=== PATIENT | female | born 1970 | race African-American/Black ===

== ENCOUNTER 2016-02-17 22:21 | Emergency (ER) | payer OTHER ==
--- NOTE | 2016-02-17 22:35 | PDOC ---
History of Present Illness - General Stated Complaint: TROUBLE BREATHING Time Seen by Provider: 02/17/16 22:25 History Source: Patient Exam Limitations: No Limitations - History of Present Illness Timing/Duration: reports: just prior to arrival Severity: reports: mild Possible Cause: Yes: no prior episodes Associated Symptoms: reports: denies symptoms Past History - Travel Traveled outside of the country in the last 30 days: No Close contact w/someone who was outside of country & ill: No - Past Medical History Allergies/Adverse Reactions: Allergies Allergy/AdvReac Type Severity Reaction Status Date / Time haloperidol [From Haldol] AdvReac Verified 02/17/16 22:39 haloperidol lactate AdvReac Verified 02/17/16 22:39 [From Haldol] Home Medications: Ambulatory Orders Albuterol Sulfate Inhaler - [Ventolin HFA Inhaler -] 2 inh PO Q4H #1 inh Ibuprofen [Motrin -] 600 mg PO TID #21 tablet 02/06/14 Divalproex *ER* [Depakote *ER* -] 250 mg PO BID 02/17/16 Asthma: Yes HTN: Yes (NO MEDS) - Immunization History Td Vaccination: No Immunization Up to Date: Yes - Psycho/Social/Smoking Cessation Hx Anxiety: No Suicidal Ideation: No Smoking Status: Yes Smoking History: Current every day smoker Number of Cigarettes Smoked Daily: 10 Hx Alcohol Use: Yes (occasion) Respiratory Specific PMHX - Complaint Specific PMHX Angina: No Bronchitis: No Pneumonia: No Review of Systems - Review of Systems Able to Perform ROS?: Yes Comments:: 02/17/16 22:31 CONSTITUTIONAL: Absent: fever, chills, diaphoresis, generalized weakness, malaise, loss of appetite HEENT: Absent: rhinorrhea, nasal congestion, throat pain, throat swelling, difficulty swallowing, mouth swelling, ear pain, eye pain, visual Changes CARDIOVASCULAR: Absent: chest pain, loss of consciousness, palpitations, irregular heart rate, peripheral edema RESPIRATORY: Absent: cough, shortness of breath, dyspnea with exertion, orthopnea, wheezing, stridor, hemoptysis GASTROINTESTINAL: Absent: abdominal pain, abdominal distension, nausea, vomiting, diarrhea, constipation, melena, hematochezia GENITOURINARY: Absent: dysuria, frequency, urgency, hesitancy, hematuria, flank pain, genital pain MUSCULOSKELETAL: Absent: myalgia, arthralgia, joint swelling SKIN: Absent: rash, itching, pallor HEMATOLOGIC/IMMUNOLOGIC: Absent: easy bleeding, easy bruising, lymphadenopathy, frequent infections ENDOCRINE: Absent: unexplained weight gain, unexplained weight loss, heat intolerance, cold intolerance NEUROLOGIC: Absent: headache, focal weakness or paresthesias, dizziness, unsteady gait, seizure, mental status changes, bladder or bowel incontinence PSYCHIATRIC: Absent: anxiety, depression, suicidal or homicidal ideation, hallucinations. Is the patient limited Maori proficient: No *Physical Exam - Physical Exam Comments: 02/17/16 22:32 GENERAL: Well developed, well nourished. Awake and alert. No acute distress. HEENT: Normocephalic, atraumatic. PERRLA, EOMI. No conjunctival pallor. Sclera are non- icteric. Moist mucous membranes. Oropharynx is clear. NECK: Supple. Full ROM. No JVD. Carotid pulses 2+ and symmetric, without bruits. No thyromegaly. No lymphadenopathy. CARDIOVASCULAR: Regular rate and rhythm. No murmurs, rubs, or gallops. Distal pulses are 2+ and symmetric. PULMONARY: No evidence of respiratory distress. Lungs clear to auscultation bilaterally. No wheezing, rales or rhonchi. ABDOMINAL: Soft. Non-tender. Non-distended. No rebound or guarding. No organomegaly. Normoactive bowel sounds. MUSCULOSKELETAL Normal range of motion at all joints. No bony deformities or tenderness. No CVA tenderness. EXTREMITIES: No cyanosis. No clubbing. No edema. No calf tenderness. SKIN: Warm and dry. Normal capillary refill. No rashes. No jaundice. NEUROLOGICAL: Alert, awake, appropriate. Cranial nerves 2-12 intact. No deficits to light touch and temperature in face, upper extremities and lower extremities. No motor deficits in the in face, upper extremities and lower extremities. Normoreflexic in the upper and lower extremities. Normal speech. Toes are down- going bilaterally. Gait is normal without ataxia. PSYCHIATRIC: Cooperative. Good eye contact. Appropriate mood and affect. Progress Note - Progress Note Progress Note: 45-year-old female brought in by EMS with her boyfriend c/o shortness of breath and pleuritic chest pain after having an argument at home. Patient states she is ALLERGIC to dust and while dusting this evening, her mother told her to stop doing housework which started the verbal dispute. Patient states while arguing she felt sob after "breathing fast" which then caused the CP. Patient denies any nausea/vomiting, headaches, fever/chills, neck pain, abdominal pains. On arrival to the ER, pt says her breathing is better and her chest discomfort is "slowly leaving". 0032hrs; Pt says she is pain free and feels "good" *DC/Admit/Observation/Transfer Diagnosis at time of Disposition: Psychogenic hyperventilation - Discharge Dispostion Disposition: HOME Condition at time of disposition: Improved - Patient Instructions Printed Discharge Instructions: DI for Hyperventilation Additional Instructions: Rest Increase fluids Follow up with your physician Return back to the ER for any recurrent discomfort.
[2016-02-17 22:42] VITALS: BP 135/82; PULSE 86; TEMP 98; BMI 29.7
--- NOTE | 2016-02-18 11:23 | EKG ---
Test Reason : Blood Pressure : / mmHG Vent. Rate : 096 BPM Atrial Rate : 096 BPM P-R Int : 120 ms QRS Dur : 094 ms QT Int : 382 ms P-R-T Axes : 061 002 003 degrees QTc Int : 482 ms NORMAL SINUS RHYTHM POSSIBLE LEFT ATRIAL ENLARGEMENT CANNOT RULE OUT ANTERIOR INFARCT , AGE UNDETERMINED ABNORMAL ECG WHEN COMPARED WITH ECG OF 06-FEB-2014 00:52, NONSPECIFIC T WAVE ABNORMALITY NO LONGER EVIDENT IN LATERAL LEADS Confirmed by JAREN HORNE MD ([id number]) on 02/18/2016 11:22:51 AM Referred By: Confirmed By:JAREN HORNE MD
== END 2016-02-18 01:05 | disposition home or self-care (01) ==
LOC: JER 22:21
DX: R06.4 Hyperventilation (principal)
CPT/HCPCS: 71020-TC; 84703; 93005; 93010; 99282-25

== ENCOUNTER 2016-03-20 17:34 | Emergency (ER) | payer OTHER ==
[2016-03-20 18:05] VITALS: BP 113/70; PULSE 116; TEMP 98.7; BMI 40.3
--- NOTE | 2016-03-20 18:28 | PDOC ---
History of Present Illness - General Chief Complaint: Wound Stated Complaint: INFECTION Time Seen by Provider: 03/20/16 17:59 - History of Present Illness Initial Comments: 03/20/16 18:26 CHIEF COMPLAINT: infection HISTORY OF PRESENT ILLNESS: 45 yo F with hx of bipolar disorder, substance abuse, HTN, and HLD presents to fast track with "pain and infection" to left leg. Patient states that she "got bit by spiders or something" while she was cleaning her mother's house "or maybe at home because sometimes I see them coming down," and the last three days she has had bites to her left leg that "I think got infected or something." She states "I think the infection went up because my leg hurts and I think I have the same bumps on my vagina." No recent travel or sick contacts. PAST MEDICAL HISTORY: Denies past medical history FAMILY HISTORY: Denies SOCIAL HISTORY: "I used to use crack cocaine but not anymore." Denies tobacco, alcohol, illicit drug use. SURGICAL HISTORY: ankle surgery ALLERGIES: haldol REVIEW OF SYSTEMS General/Constitutional: Denies fever or chills. Denies weakness Gastrointestinal: Denies nausea, vomiting, diarrhea. Genitourinary: Denies dysuria, frequency, or change in urination. Musculoskeletal: Leg pain. Denies joint or muscle swelling or pain. Skin and breasts: "I think these spider bites got infected." Denies rash or easy bruising. Neurologic: Denies headache, vertigo, loss of consciousness, or loss of sensation. PHYSICAL EXAM General Appearance: Well-appearing, appropriately dressed. No apparent distress , no intoxication. HEENT: EOMI, PERRLA, normal ENT inspection, normal voice, TMs normal, pharynx normal. No conjunctival pallor. No photophobia, scleral icterus. Neck: Supple. Trachea midline. No tenderness, rigidity, carotid bruit, stridor , lymphadenopathy, or thyromegaly. Respiratory/Chest: Lungs CTAB. No shortness of breath, chest tenderness, respiratory distress, accessory muscle use. No crackles, rales, rhonchi, stridor , wheezing, dullness Cardiovascular: RRR. S1, S2. Gastrointestinal/Abdominal: Normal bowel sounds. Abdomen soft, non-distended. No tenderness or rebound tenderness. No organomegaly, pulsatile mass, guarding , hernia, hepatomegaly, splenomegaly. Genitourinary: Two forming abscesses to suprapubic region, no fluctuance. Lymphatic: No adenopathy, tenderness. Musculoskeletal/Extremities: Normal inspection. FROM of all extremities, normal capillary refill. Pelvis Stable. No CVA tenderness. No tenderness to extremities, pedal edema, swelling, erythema or deformity. Integumentary: 3 cm x 3 cm markedly tender area of erythema to left rey with 1 cm x 1 cm actively draining pustule. 0.5cm x 0.5cm closed pustule to left rey. Appropriate color, dry, warm. No cyanosis, erythema, jaundice or rash Neurologic: sorter upholstery parts II-XII intact. Fully oriented, alert. Appropriate mood/affect. Motor strength 5/5. No appreciable EOM palsy, facial droop or sensory deficit. Timing/Duration: reports: just prior to arrival Past History - Past Medical History Allergies/Adverse Reactions: Allergies Allergy/AdvReac Type Severity Reaction Status Date / Time haloperidol [From Haldol] AdvReac Verified 03/20/16 17:49 haloperidol lactate AdvReac Verified 03/20/16 17:49 [From Haldol] Home Medications: Ambulatory Orders Albuterol Sulfate Inhaler - [Ventolin HFA Inhaler -] 2 inh PO Q4H #1 inh Ibuprofen [Motrin -] 600 mg PO TID #21 tablet 02/06/14 Divalproex *ER* [Depakote *ER* -] 250 mg PO BID 02/17/16 Sulfamethoxazole/Trimethoprim [Bactrim Ds -] 1 tab PO BID #20 tablet 03/20/16 Asthma: Yes HTN: Yes Psychiatric Problems: Yes - Immunization History Td Vaccination: No Immunization Up to Date: Yes - Psycho/Social/Smoking Cessation Hx Anxiety: No Suicidal Ideation: No Smoking Status: Yes Smoking History: Current every day smoker Number of Cigarettes Smoked Daily: 10 Information on smoking cessation initiated: No Hx Alcohol Use: No Drug/Substance Use Hx: No Substance Use Type: None *Physical Exam - Vital Signs Last Vital Signs Temp Pulse Resp BP Pulse Ox 98.7 F 116 H 16 113/70 96 03/20/16 17:50 03/20/16 17:50 03/20/16 17:50 03/20/16 17:50 03/20/16 17:50 Medical Decision Making - Medical Decision Making 03/20/16 18:39 45 y F with hx of bipolar disorder, substance abuse, HTN, and asthma presents to fast track with pustular lesions to left leg and folliculitis to suprapubic area. -Drained large pustule to left leg, wound culture sent -Left tib/fib x-ray to eval for osteo given site of lesion, tenderness on palpation, and patient's complaints of "pain going up leg" It does not appear that the abscesses to suprapubic region are ready for drainage at this time. Advised patient to use warm compresses to help bring the infection to the surface for drainage if necessary. -Bactrim DS bid x 10 days Advised patient to take medications as prescribed and return to ER if infection does not improve. Advised patient of signs and symptoms for return to ER: patient verbalized understanding and agrees to plan. 03/20/16 19:21 *DC/Admit/Observation/Transfer Diagnosis at time of Disposition: Folliculitis, Pustular lesion - Discharge Dispostion Admit: No - Prescriptions Prescriptions: Sulfamethoxazole/Trimethoprim [Bactrim Ds -] 1 tab PO BID #20 tablet - Referrals Referrals: Aditya Marie MD [Primary Care Provider] - - Patient Instructions Printed Discharge Instructions: DI for Folliculitis, DI for Skin Abscess Additional Instructions: Please take medication as prescribed. If the areas of infection do not improve over the next 24-48 hours, please return to the ER. If you develop fever, nausea, vomiting, diarrhea, or increased swelling, warmth, or streaking at the site of infection, or any new or worsening symptoms, please return to the ER.
== END 2016-03-20 20:06 | disposition home or self-care (01) ==
LOC: JER 17:34
DX: L73.9 Follicular disorder, unspecified (principal); L08.9 Local infection of the skin and subcutaneous tissue, unspecified; F17.210 Nicotine dependence, cigarettes, uncomplicated; F31.9 Bipolar disorder, unspecified; I10 Essential (primary) hypertension; F99 Mental disorder, not otherwise specified; J45.909 Unspecified asthma, uncomplicated; F14.21 Cocaine dependence, in remission; E78.5 Hyperlipidemia, unspecified
CPT/HCPCS: 73590-TC-LT; 87070; 87186; 87205; 99281-25

== ENCOUNTER 2017-06-24 17:30 | Inpatient (IN) | payer OTHER ==
--- NOTE | 2017-06-24 17:54 | PDOC ---
Rapid Medical Evaluation Time Seen by Provider: 06/24/17 17:49 Medical Evaluation: Allergies Allergy/AdvReac Type Severity Reaction Status Date / Time haloperidol [From Haldol] AdvReac Verified 03/20/16 17:49 haloperidol lactate AdvReac Verified 03/20/16 17:49 [From Haldol] 06/24/17 17:49 I have performed a brief in-person evaluation of this patient. The patient presents with a chief complaint of: sent by pmd for treatment of right axilla abscess since 1 week States seen by pmd and sent to ed for further evaluation Pertinent physical exam findings: NAD unlabored breathing erythematous intact abscess to anterior axilla I have ordered the following: The patient will proceed to the ED for further evaluation.
--- NOTE | 2017-06-24 18:52 | PDOC ---
History of Present Illness - General Chief Complaint: Abscess Boil Stated Complaint: PCP SENT Time Seen by Provider: 06/24/17 17:49 - History of Present Illness Initial Comments: 47-year-old female presents to the emergency room for I&D of a right axillary abscess which has been there for about a week 06/24/17 18:50 Past History - Past Medical History Allergies/Adverse Reactions: Allergies Allergy/AdvReac Type Severity Reaction Status Date / Time haloperidol [From Haldol] AdvReac Verified 06/24/17 17:50 haloperidol lactate AdvReac Verified 06/24/17 17:50 [From Haldol] Home Medications: Ambulatory Orders Divalproex *ER* [Depakote *ER* -] 250 mg PO BID 02/17/16 Asthma: Yes COPD: No HTN: Yes Psychiatric Problems: Yes - Immunization History Td Vaccination: No Immunization Up to Date: Yes - Suicide/Smoking/Psychosocial Hx Smoking Status: Yes Smoking History: Current every day smoker Have you smoked in the past 12 months: Yes Number of Cigarettes Smoked Daily: 4 Information on smoking cessation initiated: No Hx Alcohol Use: No Drug/Substance Use Hx: No Substance Use Type: None Review of Systems - Review of Systems Comments:: GENERAL/CONSTITUTIONAL: [No fever or chills. No weakness. No weight change.] HEAD, EYES, EARS, NOSE AND THROAT: [No change in vision. No ear pain or discharge. No sore throat.] CARDIOVASCULAR: [No chest pain or shortness of breath.] RESPIRATORY: [No cough, wheezing, or hemoptysis.] GASTROINTESTINAL: [No nausea, vomiting, diarrhea or constipation. No rectal bleeding.] GENITOURINARY: [No dysuria, frequency, or change in urination.] MUSCULOSKELETAL: [No joint or muscle swelling or pain. No neck or back pain.] SKIN AND BREASTS: [No rash or easy bruising right axilla pain.] NEUROLOGIC: [No headache, vertigo, loss of consciousness, or loss of sensation.] PSYCHIATRIC: [No depression or anxiety.] ENDOCRINE: [No increased thirst. No abnormal weight change.] HEMATOLOGIC/LYMPHATIC: [No anemia, easy bleeding, or history of blood clots.] ALLERGIC/IMMUNOLOGIC: [No hives or skin allergy. No latex allergy.] 06/24/17 18:51 *Physical Exam - Vital Signs Last Vital Signs Temp Pulse Resp BP Pulse Ox 98.6 F 95 H 19 145/79 99 06/24/17 17:50 06/24/17 17:50 06/24/17 17:50 06/24/17 17:50 06/24/17 17:50 - Physical Exam Comments: There is a large about 5-6 cm area under the right axilla of erythema induration and multiloculated fluctuants which is warm without drainage no gross sensorimotor deficits in the right upper extremity 06/24/17 18:51 *DC/Admit/Observation/Transfer Diagnosis at time of Disposition: Abscess - Discharge Dispostion Condition at time of disposition: Stable Decision to Admit order: Yes - Referrals Referrals: Aditya Marie MD [Primary Care Provider] - - Patient Instructions - Post Discharge Activity
[2017-06-24 21:04] LABS: BASO % 0.4 % (0-2.0); EOS % 0.8 % (0-4.5); HEMATOCRIT 32.5 % (32.4-45.2); HEMOGLOBIN 10.7 GM/dL (10.7-15.3); LYMPH % 15.8 % (8-40); MCH 30.7 pg (25.7-33.7); MCHC 32.9 g/dl (32.0-36.0); MEAN CELL VOLUME 93.4 fl (80-96); MEAN PLT VOLUME 8.8 fl (7.5-11.1); MONO % 5.7 % (3.8-10.2); NEUT % 77.3 % (42.8-82.8); PLATELET COUNT 256 K/MM3 (134-434); RBC 3.48 M/mm3 (3.60-5.2); RDW 15.1 % (11.6-15.6); WHITE BLOOD COUNT 12.6 K/mm3 (4.0-10.0)
[2017-06-24 21:21] LABS: INR 1.11 (0.82-1.09); PROTHROMBIN TIME (PATIENT) 12.5 SEC (9.7-13.0)
[2017-06-24 21:24] LABS: ACTIVATED PTT 30.2 SECONDS (26.9-34.4)
[2017-06-24 21:33] LABS: ALBUMIN 2.9 g/dl (3.4-5.0); ALK PHOS 70 U/L (45-117); ANION GAP 7 (8-16); BILIRUBIN,TOTAL 0.3 mg/dL (0.2-1.0); BLOOD UREA NITROGEN 12 mg/dL (7-18); CALCIUM 8.3 mg/dL (8.5-10.1); CHLORIDE 108 mmol/L (98-107); CO2 27 mmol/L (21-32); CREATININE 0.8 mg/dL (0.55-1.02); GLUCOSE,RANDOM 108 mg/dL (74-106); SGPT/ALT 16 U/L (12-78); SODIUM 142 mmol/L (136-145); TOT PROT 6.9 g/dl (6.4-8.2)
[2017-06-24 21:38] LABS: POTASSIUM 3.9 mmol/L (3.5-5.1); SGOT/AST 22 U/L (15-37)
[2017-06-24] MEDS ORDERED: PIPERACILLIN/TAZOB 3.375 GM 3.375 GM in DEXTROSE 5%-WATER - 50 ML IVPB SCH (23:30)
[2017-06-24] MEDS ORDERED: VANCOMYCIN 1,000 MG in DEXTROSE 5%-WATER - 250 ML IVPB ONE (23:30)
[2017-06-24] MEDS ORDERED: DEXTROSE 5%-0.45% SALINE 1,000 ML IV SCH (23:30)
[2017-06-24] MEDS ORDERED: VANCOMYCIN 1,000 MG in DEXTROSE 5%-WATER - 250 ML IVPB SCH (23:30)
[2017-06-24 23:46] VITALS: BMI 36.0
[2017-06-25] MEDS ORDERED: PIPERACILLIN/TAZOBACTAM 3.375 GM VIAL IVPB ONE ×3 (00:24→18:34)
[2017-06-25] MEDS ORDERED: DEXTROSE 5%-WATER - 50 ML IVPB ONE ×3 (00:25→18:34)
[2017-06-25] MEDS: DIVALPROEX NA *ER* EXTEND REL 250 MG TABLET.SA PO SCH ×3 (00:38→22:47)
[2017-06-25] MEDS: PIPERACILLIN/TAZOB 3.375 GM 3.375 GM in DEXTROSE 5%-WATER - 50 ML IVPB SCH ×3 (00:38→18:45)
[2017-06-25] MEDS: ACETAMINOPHEN 325 MG TABLET (FP) PO PRN ×2 (00:46→14:13)
[2017-06-25 07:39] LABS: BASO % 0.3 % (0-2.0); EOS % 0.6 % (0-4.5); HEMATOCRIT 31.3 % (32.4-45.2); HEMOGLOBIN 10.6 GM/dL (10.7-15.3); LYMPH % 14.1 % (8-40); MCHC 33.8 g/dl (32.0-36.0); MEAN CELL VOLUME 94.6 fl (80-96); MEAN PLT VOLUME 8.9 fl (7.5-11.1); MONO % 6.6 % (3.8-10.2); NEUT % 78.4 % (42.8-82.8); PLATELET COUNT 227 K/MM3 (134-434); RBC 3.31 M/mm3 (3.60-5.2); RDW 14.8 % (11.6-15.6); WHITE BLOOD COUNT 9.7 K/mm3 (4.0-10.0)
[2017-06-25 07:59] LABS: ALBUMIN 2.5 g/dl (3.4-5.0); ANION GAP 7 (8-16); BLOOD UREA NITROGEN 10 mg/dL (7-18); CALCIUM 7.9 mg/dL (8.5-10.1); CHLORIDE 108 mmol/L (98-107); CO2 27 mmol/L (21-32); GLUCOSE,RANDOM 87 mg/dL (74-106); SODIUM 142 mmol/L (136-145)
[2017-06-25 08:04] LABS: ALK PHOS 62 U/L (45-117); BILIRUBIN,TOTAL 0.5 mg/dL (0.2-1.0); CREATININE 0.8 mg/dL (0.55-1.02); SGOT/AST 15 U/L (15-37); SGPT/ALT 12 U/L (12-78); TOT PROT 6.1 g/dl (6.4-8.2)
[2017-06-25] MEDS ORDERED: PT OWN MED DRAWER 7, Y5N ONE ×2 (10:02→11:04)
[2017-06-25] MEDS ORDERED: PIPERACILLIN/TAZOB 3.375 GM 3.375 GM in DEXTROSE 5%-WATER - 50 ML IVPB ONE ×3 (11:15→17:53)
--- NOTE | 2017-06-25 12:47 | CON.ID ---
Consult Consult Specialty:: infectious diseases Referred by:: Reason for Consultation:: axillary abscess - History of Present Illness Chief Complaint: axillary swelling with pain History of Present Illness: 47-year-old female admitted for I&D of a right axillary abscess which has been there for about a week according tot he patient she has been having this swelling for about a week denies any fever nausea or vomiting patient was seen by surgery - History Source History Provided By: Patient Limitations to Obtaining History: No Limitations - Alcohol/Substance Use Hx Alcohol Use: No - Smoking History Smoking history: Current every day smoker Have you smoked in the past 12 months: Yes Aproximately how many cigarettes per day: 4 Home Medications - Allergies Allergies/Adverse Reactions: Allergies Allergy/AdvReac Type Severity Reaction Status Date / Time haloperidol [From Haldol] AdvReac Verified 06/24/17 17:50 haloperidol lactate AdvReac Verified 06/24/17 17:50 [From Haldol] - Home Medications Home Medications: Ambulatory Orders Divalproex *ER* [Depakote *ER* -] 250 mg PO BID 02/17/16 Acetaminophen [Tylenol .Regular Strength -] 650 mg PO Q6H PRN tablet 06/26/17 Acetaminophen [Tylenol .Regular Strength -] 650 mg PO Q6H PRN #0 tablet Amoxicillin/Potassium Clav [Augmentin 875-125 Tablet] 1 each PO BID #20 tablet 06/26/17 Bacitracin - [Bacitracin Topical Ointment -] 1 applic TP DAILY #60 grams Review of Systems - Review of Systems Constitutional: reports: No Symptoms Eyes: reports: No Symptoms HENT: reports: No Symptoms Neck: reports: No Symptoms Cardiovascular: reports: No Symptoms Respiratory: reports: No Symptoms Gastrointestinal: reports: No Symptoms Genitourinary: reports: No Symptoms Musculoskeletal: reports: Other (axillary swelling) Integumentary: reports: No Symptoms Neurological: reports: No Symptoms Endocrine: reports: No Symptoms Hematology/Lymphatic: reports: No Symptoms Psychiatric: reports: No Symptoms Physical Exam Vital Signs: Vital Signs Temperature 99.7 F H 06/25/17 09:00 Pulse Rate 87 06/25/17 09:00 Respiratory Rate 18 06/25/17 09:00 Blood Pressure 136/68 06/25/17 09:00 O2 Sat by Pulse Oximetry (%) 100 05/15/18 22:38 Constitutional: Yes: Well Nourished, Obese Eyes: Yes: Conjunctiva Clear HENT: Yes: Atraumatic Neck: Yes: Supple Cardiovascular: Yes: Regular Rate and Rhythm Respiratory: Yes: Regular, CTA Bilaterally Gastrointestinal: Yes: Normal Bowel Sounds, Soft Musculoskeletal: Yes: Other Extremities: Yes: Other Integumentary: Yes: Other (rt axillary swelling fluctuation present) Neurological: Yes: Alert, Oriented Psychiatric: Yes: Alert, Oriented Labs: CBC, BMP 06/25/17 06:30 06/25/17 06:30 Assessment/Plan axiallry abscess swelling pain Axillary abscess Code(s): L02.419 - CUTANEOUS ABSCESS OF LIMB, UNSPECIFIED plan will start patient on abx plan is to do i and d of the colelction surgery planning to see the patient rest as per the team
--- NOTE | 2017-06-25 15:21 | HP ---
Admitting History and Physical - Admission History of Present Illness: Pt is a 47 y/o female who has been having an abscess on rt axilla for the past week. Pt states that it progressively enlarged over the past few days and may have noticed a discharge. Pt denies any fever/chills. - Smoking History Smoking history: Current every day smoker Have you smoked in the past 12 months: Yes Aproximately how many cigarettes per day: 4 - Alcohol/Substance Use Hx Alcohol Use: No Home Medications - Allergies Allergies/Adverse Reactions: Allergies Allergy/AdvReac Type Severity Reaction Status Date / Time haloperidol [From Haldol] AdvReac Verified 06/24/17 17:50 haloperidol lactate AdvReac Verified 06/24/17 17:50 [From Haldol] - Home Medications Home Medications: Ambulatory Orders Divalproex *ER* [Depakote *ER* -] 250 mg PO BID 02/17/16 Family Disease History - Family Disease History Family History: Unremarkable Review of Systems - Review of Systems Constitutional: reports: No Symptoms HENT: reports: No Symptoms Cardiovascular: reports: No Symptoms Respiratory: reports: No Symptoms Gastrointestinal: reports: No Symptoms Physical Examination Vital Signs: Vital Signs Temperature 102.3 F H 06/25/17 14:00 Pulse Rate 92 H 06/25/17 14:00 Respiratory Rate 20 06/25/17 14:00 Blood Pressure 137/91 06/25/17 14:00 O2 Sat by Pulse Oximetry (%) 100 06/24/17 22:38 Constitutional: Yes: Well Nourished HENT: Yes: WNL Neck: Yes: WNL Cardiovascular: Yes: WNL Respiratory: Yes: WNL, Regular, CTA Bilaterally Gastrointestinal: Yes: WNL, Normal Bowel Sounds Extremities: Yes: Other ((+) indurated mass rtr axilla) Labs: CBC, BMP 06/25/17 06:30 06/25/17 06:30 Problem List - Problems (1) Axillary abscess Assessment/Plan: Cont IV antibxs Surgical ID consults Follow cultures Code(s): L02.419 - CUTANEOUS ABSCESS OF LIMB, UNSPECIFIED
[2017-06-25] MEDS ORDERED: PROPOFOL 20 ML ONE (15:25)
[2017-06-25] MEDS ORDERED: MIDAZOLAM HCL 2 MG/2 ML SINGLE DOSE VIAL ONE (15:25)
[2017-06-25] MEDS ORDERED: ONDANSETRON 4 MG/2 ML VIAL IVPUSH PRN ×2 (16:03→17:57)
[2017-06-25] MEDS ORDERED: LACTATED RINGERS SOLUTION 1,000 ML IV SCH ×2 (16:15→17:36)
[2017-06-25] MEDS ORDERED: SUCCINYLCHOLINE CHLORIDE 200 MG/10 ML VIAL ONE (17:05)
--- NOTE | 2017-06-25 17:29 | CONSULT ---
Consult Consult Specialty:: Surgery Reason for Consultation:: right axillary abscess - History of Present Illness Chief Complaint: right axillary pain and swelling History of Present Illness: 47-year-old female presents to the emergency room for I&D of a right axillary pain, swelling for about a week. Given p.o. antibiotics at [facility] ED with subsequent development of fluctuant masses of the right axilla 06/24/17 18:50 - History Source History Provided By: Patient - Past Medical History Pulmonary: Yes: COPD Psych: Yes: Other - Alcohol/Substance Use Hx Alcohol Use: No - Smoking History Smoking history: Current every day smoker Have you smoked in the past 12 months: Yes Aproximately how many cigarettes per day: 4 Home Medications - Allergies Allergies/Adverse Reactions: Allergies Allergy/AdvReac Type Severity Reaction Status Date / Time haloperidol [From Haldol] AdvReac Verified 06/24/17 17:50 haloperidol lactate AdvReac Verified 06/24/17 17:50 [From Haldol] - Home Medications Home Medications: Ambulatory Orders Divalproex *ER* [Depakote *ER* -] 250 mg PO BID 02/17/16 Review of Systems - Review of Systems Cardiovascular: reports: No Symptoms Respiratory: reports: No Symptoms Gastrointestinal: reports: No Symptoms Integumentary: reports: Other (Right axillary pain and swelling) Physical Exam Vital Signs: Vital Signs Temperature 102.3 F H 06/25/17 14:00 Pulse Rate 92 H 06/25/17 14:00 Respiratory Rate 20 06/25/17 14:00 Blood Pressure 137/91 06/25/17 14:00 O2 Sat by Pulse Oximetry (%) 100 06/24/17 22:38 Constitutional: Yes: Well Nourished Eyes: Yes: Conjunctiva Clear HENT: Yes: Normocephalic Neck: Yes: Supple Cardiovascular: Yes: Regular Rate and Rhythm Respiratory: Yes: CTA Bilaterally Gastrointestinal: Yes: Soft Integumentary: Yes: Other (multiple (3) tender fluctuant areas from 3 to 4 cm in size with surrounding erythema and edema of right axilla) Neurological: Yes: Alert, Oriented Labs: CBC, BMP 06/25/17 06:30 06/25/17 06:30 Problem List - Problems (1) Axillary abscess Assessment/Plan: I & D of right axillary abscess under [facility] IV antibiotics Code(s): L02.419 - CUTANEOUS ABSCESS OF LIMB, UNSPECIFIED (2) Abscess Code(s): L02.91 - CUTANEOUS ABSCESS, UNSPECIFIED
--- NOTE | 2017-06-25 17:31 | OP ---
Operative Note - Note: Operative Date: 06/25/17 Pre-Operative Diagnosis: right axillary abscess Operation: I & D, right axillary abscess Findings: multiple (3) fluctuant areas of right axilla containing purulent fluid Post-Operative Diagnosis: Same as Pre-op Surgeon: Aidan Charles Anesthesia: General (LMA) Estimated Blood Loss (mls): 10 Operative Report Dictated: Yes
[2017-06-25] MEDS ORDERED: BACITRACIN 15 GM TUBE TOPICAL OINTMENT ONE (17:34)
[2017-06-25] MEDS ORDERED: ACETAMINOPHEN INJECTION 100 ML IVPB ONE (17:37)
[2017-06-25] MEDS ORDERED: ACETAMINOPHEN 1000 MG/100 ML VIAL (NON FORMULARY) IVPB ONE (17:39)
[2017-06-25] MEDS ORDERED: ACETAMINOPHEN 325 MG TABLET (FP) PO PRN (17:53)
[2017-06-25] MEDS ORDERED: PIPERACILLIN/TAZOB 3.375 GM 3.375 GM in DEXTROSE 5%-WATER - 50 ML IVPB SCH (18:00)
[2017-06-25] MEDS ORDERED: DEXTROSE 5%-0.45% SALINE 1,000 ML IV SCH (18:00)
--- NOTE | 2017-06-25 18:52 | OP ---
DATE OF OPERATION: 06/25/2017 PROCEDURE: Incision and drainage of right axillary abscess. PREOPERATIVE DIAGNOSIS: Right axillary abscess. POSTOPERATIVE DIAGNOSIS: Multiple right axillary abscesses. SURGEON: Aidan Charles MD ANESTHESIA: General by laryngeal mask airway. FINDINGS AT PROCEDURE: This is a 47-year-old female who presents with pain, swelling, and tenderness of the right axilla one week ago. Oral antibiotics were administered after an emergency department visit at [facility]. Subsequently, the patient developed a fluctuant mass of the right axilla associated with increased pain and tenderness. On physical examination, the patient has now 3 fluctuant areas of the right axilla. One was 2.5 cm, one 3 cm, and one at 4 cm in diameter. The patient was advised to have incision and drainage of the abscesses and consent was obtained after discussing the risks, benefits, and alternatives of the procedure. DESCRIPTION OF PROCEDURE: The patient was brought to the operating room and placed in the supine position. General anesthesia by laryngeal mask airway was administered. The right arm was then abducted more than 90 degrees and a roll was placed under the patient's right shoulder. The right axilla was prepped and draped in the usual sterile fashion. Using a scalpel blade number 15, the largest fluctuant mass was incised and about 30 mL of purulent fluid was drained. A smaller incision of about 2.5 cm was made over the second largest abscess to drain another 30 mL of purulent fluid. The abscess cavities, which were close together were then digitally explored and the soft tissue bridges were taken down bluntly to connect the three abscess cavities. Abscess cavity was copiously irrigated with normal saline until return was clear. The wounds were packed with 2-inch iodoform strips and covered with pressure dressing. Patient was successfully extubated and transferred to the post anesthesia care unit in satisfactory condition. ESTIMATED BLOOD LOSS: About 10 mL. WOUND CLASS: Dirty. The patient was already on antibiotics upon admission. Sara [id number] MTDD
[2017-06-25] MEDS ORDERED: VANCOMYCIN 1,000 MG in DEXTROSE 5%-WATER - 250 ML IVPB SCH (23:30)
[2017-06-25] MEDS ORDERED: VANCOMYCIN 1,000 MG in DEXTROSE 5%-WATER - 250 ML IVPB ONE (23:30)
[2017-06-26] MEDS ORDERED: PIPERACILLIN/TAZOBACTAM 3.375 GM VIAL IVPB ONE ×2 (00:12→09:59)
[2017-06-26] MEDS ORDERED: DEXTROSE 5%-WATER - 50 ML IVPB ONE ×2 (00:13→09:59)
[2017-06-26] MEDS: PIPERACILLIN/TAZOB 3.375 GM 3.375 GM in DEXTROSE 5%-WATER - 50 ML IVPB SCH ×2 (01:32→10:49)
[2017-06-26] MEDS ORDERED: morphine CARPU-JECT 2 MG/1 ML DISP.SYRIN IM ONE (09:19)
--- NOTE | 2017-06-26 09:24 | PN ---
Progress Note (short form) - Note Progress Note: s/p I & D right axillary abscess Has minimal post-op pain Wound dressing changed and packed with iodoform strip A/P doing well May D/C HOME WITH VNS Wound care: NS irrigation and iodoform packing followed by gauze dressing f/u at the office in one week. Problem List - Problems (1) Axillary abscess Code(s): L02.419 - CUTANEOUS ABSCESS OF LIMB, UNSPECIFIED (2) Abscess Code(s): L02.91 - CUTANEOUS ABSCESS, UNSPECIFIED
[2017-06-26] MEDS ORDERED: BACITRACIN 15 GM TUBE TOPICAL OINTMENT TP SCH (10:00)
[2017-06-26] MEDS: DIVALPROEX NA *ER* EXTEND REL 250 MG TABLET.SA PO SCH (10:54)
[2017-06-26 12:33] VITALS: BP 102/52; PULSE 88; TEMP 98.6
--- NOTE | 2017-06-30 21:26 | DS ---
Physical Examination Vital Signs: Vital Signs Temperature 98.6 F 06/26/17 09:00 Pulse Rate 88 06/26/17 09:00 Respiratory Rate 16 06/26/17 09:00 Blood Pressure 102/52 06/26/17 09:00 O2 Sat by Pulse Oximetry (%) 96 06/26/17 09:00 Labs: CBC, BMP 06/25/17 06:30 06/25/17 06:30 Discharge Summary Reason For Visit: ABSCESS Condition: Good - Instructions Diet, Activity, Other Instructions: Activity as tolerated Regular diet clean and pack the wound with iodofrom packing daily may take shower Referrals: Aditya Marie MD [Primary Care Provider] - Disposition: HOME - Home Medications Comprehensive Discharge Medication List: Ambulatory Orders Divalproex *ER* [Depakote *ER* -] 250 mg PO BID 02/17/16 Acetaminophen [Tylenol .Regular Strength -] 650 mg PO Q6H PRN tablet 06/26/17 Acetaminophen [Tylenol .Regular Strength -] 650 mg PO Q6H PRN #0 tablet Amoxicillin/Potassium Clav [Augmentin 875-125 Tablet] 1 each PO BID #20 tablet 06/26/17 Bacitracin - [Bacitracin Topical Ointment -] 1 applic TP DAILY #60 grams
== END 2017-06-26 12:16 | disposition home or self-care (01) | DRG 383 ==
LOC: JERFT 17:30 → JER 17:30 → JERBED 19:56 → J6S 23:16
PROVIDERS: ADMIT Internal Medicine; ATTEND Internal Medicine
PROC: 0X940ZZ Drainage of Right Axilla, Open Approach (ICD-10-PCS; principal; 2017-06-25 16:30)
DX: L02.411 Cutaneous abscess of right axilla (principal); E66.9 Obesity, unspecified; Z68.36 Body mass index [BMI] 36.0-36.9, adult; F17.210 Nicotine dependence, cigarettes, uncomplicated
CPT/HCPCS: 36415; 80053; 83605; 85025; 85610; 85730; 87070; 87081; 87186; 87205; 94760; 99281-25; J0131

== ENCOUNTER 2020-02-28 09:58 | Inpatient (IN) | payer OTHER ==
[2020-02-28 10:13] VITALS: TEMP 98.3; BMI 56.5
[2020-02-28] MEDS ORDERED: ALBUTEROL SO4 2.5/IPRATROPIUM 0.5 INH SOL 3 ML VIAL.NEB. NEB ONE ×2 (10:51→10:55)
[2020-02-28] MEDS ORDERED: methylPREDNISolone NA SUCC 125 MG/2 ML VIAL IVPUSH ONE (10:52)
[2020-02-28] MEDS ORDERED: MAGNESIUM SULF 50% (8.12 MEQ/2 ML-1 GM VIAL) IVPB ONE (10:52)
[2020-02-28] MEDS ORDERED: MAGNESIUM SULFATE IN WATER 2 GM/50 ML IVPB IVPB ONE (11:10)
[2020-02-28] MEDS ORDERED: methylPREDNISolone NA SUCC 125 MG/2 ML VIAL ONE (11:10)
[2020-02-28 12:49] LABS: BASO % 0.6 % (0-2.0); HEMATOCRIT 39.2 % (32.4-45.2); HEMOGLOBIN 12.6 GM/dL (10.7-15.3); LYMPH % 11.2 % (8-40); MCHC 32.2 g/dl (32.0-36.0); MEAN CELL VOLUME 92.9 fl (80-96); MEAN PLT VOLUME 9.1 fl (7.5-11.1); MONO % 4.3 % (3.8-10.2); NEUT % 83.9 % (42.8-82.8); PLATELET COUNT 214 K/MM3 (134-434); RBC 4.21 M/mm3 (3.60-5.2); RDW 15.9 % (11.6-15.6); WHITE BLOOD COUNT 13.6 K/mm3 (4.0-10.0)
[2020-02-28 13:07] LABS: CHLORIDE 106 mmol/L (98-107); POTASSIUM 4.2 mmol/L (3.5-5.1); SODIUM 141 mmol/L (136-145)
[2020-02-28 13:09] LABS: ALBUMIN 3.7 g/dl (3.4-5.0); CALCIUM 8.8 mg/dL (8.5-10.1)
[2020-02-28 13:10] LABS: ANION GAP 5 MMOL/L (8-16); BLOOD UREA NITROGEN 15.3 mg/dL (7-18); CO2 29 mmol/L (21-32); GLUCOSE,RANDOM 117 mg/dL (74-106)
[2020-02-28 13:13] LABS: CREATININE 0.8 mg/dL (0.55-1.3); SGOT/AST 15 U/L (15-37)
[2020-02-28 13:14] LABS: BILIRUBIN,TOTAL 0.4 mg/dL (0.2-1); LDH 339 U/L (84-246); TOT PROT 7.8 g/dl (6.4-8.2)
[2020-02-28 13:15] LABS: ALK PHOS 98 U/L (45-117)
[2020-02-28 13:18] LABS: N-TERMINAL BNP 275.1 pg/ml (5-125)
[2020-02-28 13:19] LABS: SGPT/ALT 12 U/L (13-61)
[2020-02-28 13:29] LABS: INR 1.07 (0.83-1.09); PROTHROMBIN TIME (PATIENT) 13.1 SEC (9.7-13.0)
[2020-02-28 13:32] LABS: ACTIVATED PTT 28.6 SECONDS (25.2-36.5)
[2020-02-28 16:08] VITALS: BP 153/97; PULSE 114
== END 2020-02-28 22:03 | disposition left against medical advice (07) | DRG 141 ==
LOC: JER 09:58 → JERBED 17:41
PROVIDERS: ADMIT Internal Medicine; ATTEND Internal Medicine
DX: J45.901 Unspecified asthma with (acute) exacerbation (principal); E66.01 Morbid (severe) obesity due to excess calories; Z68.43 Body mass index [BMI] 50.0-59.9, adult; I10 Essential (primary) hypertension; R00.0 Tachycardia, unspecified
CPT/HCPCS: 36415; 71045-TC-FY; 80053; 82728; 83615; 83880; 84484; 84703; 85025; 85379; 85610; 85730; 86140; 93005; 93010; 99285-25; C9803; U0003

== ENCOUNTER 2021-02-17 21:41 | Emergency (ER) | payer OTHER ==
[2021-02-17 21:58] VITALS: TEMP 97.8; BMI 45.0
[2021-02-17 23:08] LABS: BASO % 0.9 % (0-2.0); EOS % 0.3 % (0-4.5); HEMOGLOBIN 13.1 GM/dL (10.7-15.3); LYMPH % 30.6 % (8-40); MCH 30.6 pg (25.7-33.7); MCHC 32.9 g/dl (32.0-36.0); MEAN CELL VOLUME 93.1 fl (80-96); MEAN PLT VOLUME 9.5 fl (7.5-11.1); MONO % 8.4 % (3.8-10.2); NEUT % 59.8 % (42.8-82.8); PLATELET COUNT 201 10^3/uL (134-434); RBC 4.29 M/mm3 (3.60-5.2); RDW 16.7 % (11.6-15.6); WHITE BLOOD COUNT 6.8 K/mm3 (4.0-10.0)
[2021-02-17] MEDS ORDERED: FLUCONAZOLE 50 MG TABLET PO ONE (23:19)
[2021-02-17 23:26] LABS: CHLORIDE 104 mmol/L (98-107); SODIUM 140 mmol/L (136-145)
[2021-02-17 23:28] LABS: ALBUMIN 2.9 g/dl (3.4-5.0); BLOOD UREA NITROGEN 9.8 mg/dL (7-18); CALCIUM 8.2 mg/dL (8.5-10.1); CO2 34 mmol/L (21-32); GLUCOSE,RANDOM 105 mg/dL (74-106)
[2021-02-17 23:31] LABS: CREATININE 0.8 mg/dL (0.55-1.3); SGOT/AST 55 U/L (15-37); SGPT/ALT 10 U/L (13-61)
[2021-02-17 23:33] LABS: BILIRUBIN,TOTAL 0.3 mg/dL (0.2-1); TOT PROT 6.9 g/dl (6.4-8.2)
[2021-02-17 23:34] LABS: ALK PHOS 59 U/L (45-117)
[2021-02-17] MEDS ORDERED: IBUPROFEN 400 MG TABLET (FP) PO ONE (23:51)
[2021-02-17 23:53] LABS: ANION GAP 2 MMOL/L (8-16)
[2021-02-18] MEDS ORDERED: IBUPROFEN 400 MG TABLET (FP) PO ONE (00:38)
[2021-02-18] MEDS ORDERED: FLUCONAZOLE 150 MG TABLET PO ONE (00:38)
[2021-02-18 01:48] VITALS: BP 110/82; PULSE 95
== END 2021-02-18 01:30 | disposition home or self-care (01) ==
LOC: JER 21:41
DX: B37.3 Candidiasis of vulva and vagina (principal)
CPT/HCPCS: 36415; 80053; 84702; 85025; 93005; 93010; 99284-25

== ENCOUNTER 2022-04-23 15:23 | Inpatient (IN) | payer OTHER ==
[2022-04-23 15:34] VITALS: BMI 52.1
[2022-04-23] MEDS ORDERED: methylPREDNISolone NA SUCC 125 MG/2 ML VIAL IVPUSH ONE (16:36)
[2022-04-23] MEDS ORDERED: ALBUTEROL SO4 2.5/IPRATROPIUM 0.5 INH SOL 3 ML VIAL.NEB. NEB ONE ×2 (16:43→19:38)
[2022-04-23] MEDS ORDERED: methylPREDNISolone NA SUCC 125 MG/2 ML VIAL ONE (16:44)
[2022-04-23] MEDS: ALBUTEROL SO4 2.5/IPRATROPIUM 0.5 INH SOL 3 ML VIAL.NEB. NEB SCH ×3 (16:45→17:18)
[2022-04-23 17:17] LABS: BASO % 0.5 % (0-2.0); EOS % 1.2 % (0-4.5); HEMATOCRIT 35.8 % (32.4-45.2); HEMOGLOBIN 11.2 GM/dL (10.7-15.3); LYMPH % 21.5 % (8-40); MCH 28.8 pg (25.7-33.7); MCHC 31.4 g/dl (32.0-36.0); MEAN CELL VOLUME 91.7 fl (80-96); MEAN PLT VOLUME 8.4 fl (7.5-11.1); MONO % 6.2 % (3.8-10.2); NEUT % 70.6 % (42.8-82.8); PLATELET COUNT 253 10^3/uL (134-434); RDW 15.3 % (11.6-15.6); VENOUS BASE EXCESS 5.2 mmol/L (-2-2); VENOUS O2 SATURATION 71.6 % (70-80); VENOUS PH 7.218 (7.310-7.410); WHITE BLOOD COUNT 9.6 K/mm3 (4.0-10.0)
[2022-04-23 17:23] LABS: VENOUS PCO2 89.8 mmHg (38-52)
[2022-04-23 17:37] LABS: CALCIUM 8.9 mg/dL (8.5-10.1)
[2022-04-23 17:38] LABS: ALBUMIN 3.1 g/dl (3.4-5.0); BLOOD UREA NITROGEN 6.8 mg/dL (7-18); MAGNESIUM 2.2 mg/dL (1.8-2.4)
[2022-04-23 17:41] LABS: CREATININE 0.6 mg/dL (0.55-1.3)
[2022-04-23 17:43] LABS: TOT PROT 6.8 g/dl (6.4-8.2)
[2022-04-23 17:44] LABS: BILIRUBIN,TOTAL 0.4 mg/dL (0.2-1)
[2022-04-23 17:46] LABS: N-TERMINAL BNP 591.1 pg/ml (5-125)
[2022-04-23] MEDS ORDERED: ALBUTEROL SULFATE 0.021% (0.63 MG/3 ML) VIAL.NEB NEB ONE (19:30)
[2022-04-23] MEDS ORDERED: ALBUTEROL SO4 0.083% IH SOL 2.5 MG/3 ML VIAL.NEB. NEB ONE (19:39)
[2022-04-23 21:43] LABS: VENOUS BASE EXCESS 3.2 mmol/L (-2-2); VENOUS O2 SATURATION 98.9 % (70-80); VENOUS PCO2 52.4 mmHg (38-52); VENOUS PH 7.368 (7.310-7.410)
[2022-04-23] MEDS ORDERED: DIVALPROEX SODIUM 500 MG TABLET E.C. PO ONE (23:20)
[2022-04-23] MEDS ORDERED: ZOLPIDEM TARTRATE 5 MG TABLET PO ONE (23:23)
[2022-04-24] MEDS ORDERED: DIVALPROEX SODIUM 500 MG TABLET E.C. ONE (00:18)
[2022-04-24] MEDS ORDERED: ZOLPIDEM TARTRATE 5 MG TABLET ONE (00:18)
[2022-04-24] MEDS ORDERED: ALBUTEROL SO4 2.5/IPRATROPIUM 0.5 INH SOL 3 ML VIAL.NEB. NEB PRN (10:26)
[2022-04-24] MEDS ORDERED: ACETAMINOPHEN INJECTION 100 ML IVPB ONE ×2 (10:36→17:08)
[2022-04-24] MEDS ORDERED: CEFTRIAXONE 1 GM/50 ML BAG ONE (10:36)
[2022-04-24] MEDS ORDERED: methylPREDNISolone NA SUCC 40 MG/1 ML VIAL ONE ×2 (10:36→17:04)
[2022-04-24] MEDS ORDERED: DIVALPROEX SODIUM 125 MG TABLET E.C. ONE (10:36)
[2022-04-24] MEDS ORDERED: ALBUTEROL SO4 2.5/IPRATROPIUM 0.5 INH SOL 3 ML VIAL.NEB. NEB ONE ×2 (10:36→14:25)
[2022-04-24] MEDS: CEFTRIAXONE 1 GM in DEXTROSE 5%-WATER - 50 ML IVPB SCH (10:45)
[2022-04-24] MEDS: DIVALPROEX NA *ER* EXTEND REL 500 MG TABLET.SA (FP) PO SCH ×3 (10:45→22:04)
[2022-04-24] MEDS: methylPREDNISolone NA SUCC 40 MG/1 ML VIAL IVPUSH SCH ×2 (10:46→17:07)
[2022-04-24] MEDS: ACETAMINOPHEN 1000 MG/100 ML BAG IVPB PRN ×3 (10:55→22:12)
[2022-04-24] MEDS ORDERED: AZITHROMYCIN IVPB 500 MG/250 ML BAG IVPB ONE (13:12)
[2022-04-24] MEDS: AZITHROMYCIN IVPB 500 MG/250 ML BAG IVPB SCH (13:18)
[2022-04-24] MEDS: ALBUTEROL SO4 2.5/IPRATROPIUM 0.5 INH SOL 3 ML VIAL.NEB. NEB SCH ×2 (15:22→20:05)
[2022-04-25] MEDS: methylPREDNISolone NA SUCC 40 MG/1 ML VIAL IVPUSH SCH ×3 (02:14→17:15)
[2022-04-25] MEDS ORDERED: ALBUTEROL SO4 2.5/IPRATROPIUM 0.5 INH SOL 3 ML VIAL.NEB. NEB ONE (03:28)
[2022-04-25] MEDS: ACETAMINOPHEN 1000 MG/100 ML BAG IVPB PRN (05:10)
[2022-04-25] MEDS: ALBUTEROL SO4 2.5/IPRATROPIUM 0.5 INH SOL 3 ML VIAL.NEB. NEB SCH ×4 (08:33→20:00)
[2022-04-25] MEDS: CEFTRIAXONE 1 GM in DEXTROSE 5%-WATER - 50 ML IVPB SCH (09:54)
[2022-04-25] MEDS: ENOXAPARIN NA (PORCINE) 40 MG/0.4 ML DISP.SYRIN SQ SCH (09:54)
[2022-04-25] MEDS: DIVALPROEX NA *ER* EXTEND REL 500 MG TABLET.SA (FP) PO SCH ×2 (09:55→22:25)
[2022-04-25] MEDS: AZITHROMYCIN IVPB 500 MG/250 ML BAG IVPB SCH (10:26)
[2022-04-26] MEDS: methylPREDNISolone NA SUCC 40 MG/1 ML VIAL IVPUSH SCH ×3 (02:33→18:45)
[2022-04-26] MEDS: ALBUTEROL SO4 2.5/IPRATROPIUM 0.5 INH SOL 3 ML VIAL.NEB. NEB SCH ×4 (07:51→20:05)
[2022-04-26] MEDS: ACETAMINOPHEN 325 MG TABLET (FP) PO PRN (11:02)
[2022-04-26] MEDS: CEFTRIAXONE 1 GM in DEXTROSE 5%-WATER - 50 ML IVPB SCH (11:02)
[2022-04-26] MEDS: AZITHROMYCIN IVPB 500 MG/250 ML BAG IVPB SCH (11:04)
[2022-04-26] MEDS: DIVALPROEX NA *ER* EXTEND REL 500 MG TABLET.SA (FP) PO SCH ×2 (11:04→23:41)
[2022-04-26] MEDS: ENOXAPARIN NA (PORCINE) 40 MG/0.4 ML DISP.SYRIN SQ SCH (11:09)
[2022-04-26] MEDS ORDERED: MAG HYDROX/AL HYDROX/SIMETH 30 ML UNIT-DOSE CUP PO PRN (19:45)
[2022-04-26] MEDS: ZOLPIDEM TARTRATE 5 MG TABLET PO PRN (23:41)
[2022-04-27] MEDS: methylPREDNISolone NA SUCC 40 MG/1 ML VIAL IVPUSH SCH ×3 (03:53→22:49)
[2022-04-27 07:18] VITALS: RESP 20
[2022-04-27] MEDS: ACETAMINOPHEN 325 MG TABLET (FP) PO PRN (07:28)
[2022-04-27] MEDS: ALBUTEROL SO4 2.5/IPRATROPIUM 0.5 INH SOL 3 ML VIAL.NEB. NEB SCH ×4 (08:00→20:00)
[2022-04-27] MEDS: CEFTRIAXONE 1 GM in DEXTROSE 5%-WATER - 50 ML IVPB SCH (09:51)
[2022-04-27] MEDS: ENOXAPARIN NA (PORCINE) 40 MG/0.4 ML DISP.SYRIN SQ SCH ×2 (09:52→10:06)
[2022-04-27] MEDS: DIVALPROEX NA *ER* EXTEND REL 500 MG TABLET.SA (FP) PO SCH ×2 (09:53→22:47)
[2022-04-27] MEDS: AZITHROMYCIN IVPB 500 MG/250 ML BAG IVPB SCH ×3 (11:24→13:00)
[2022-04-27] MEDS: ZOLPIDEM TARTRATE 5 MG TABLET PO PRN (22:47)
[2022-04-28] MEDS: ACETAMINOPHEN 325 MG TABLET (FP) PO PRN ×2 (06:26→19:06)
[2022-04-28] MEDS: ALBUTEROL SO4 2.5/IPRATROPIUM 0.5 INH SOL 3 ML VIAL.NEB. NEB SCH ×4 (08:07→20:56)
[2022-04-28] MEDS: DIVALPROEX NA *ER* EXTEND REL 500 MG TABLET.SA (FP) PO SCH ×2 (09:24→22:24)
[2022-04-28] MEDS: methylPREDNISolone NA SUCC 40 MG/1 ML VIAL IVPUSH SCH ×2 (09:26→22:24)
[2022-04-28] MEDS: CEFTRIAXONE 1 GM in DEXTROSE 5%-WATER - 50 ML IVPB SCH (09:26)
[2022-04-28] MEDS: ENOXAPARIN NA (PORCINE) 40 MG/0.4 ML DISP.SYRIN SQ SCH (09:27)
[2022-04-28] MEDS: AZITHROMYCIN IVPB 500 MG/250 ML BAG IVPB SCH (11:18)
[2022-04-28] MEDS: ATORVASTATIN CA 80 MG TABLET (FP) PO SCH (16:04)
[2022-04-28] MEDS: metoPROLOL SUCCINATE 25 MG TAB.SR.24H (FP) PO SCH (16:04)
[2022-04-28] MEDS: ZOLPIDEM TARTRATE 5 MG TABLET PO PRN (22:30)
[2022-04-29] MEDS: ACETAMINOPHEN 325 MG TABLET (FP) PO PRN ×3 (03:44→18:14)
[2022-04-29] MEDS: ALBUTEROL SO4 2.5/IPRATROPIUM 0.5 INH SOL 3 ML VIAL.NEB. NEB SCH ×2 (08:40→11:40)
[2022-04-29] MEDS: CEFTRIAXONE 1 GM in DEXTROSE 5%-WATER - 50 ML IVPB SCH (09:36)
[2022-04-29] MEDS: AZITHROMYCIN IVPB 500 MG/250 ML BAG IVPB SCH (09:36)
[2022-04-29] MEDS: DIVALPROEX NA *ER* EXTEND REL 500 MG TABLET.SA (FP) PO SCH ×2 (09:37→22:30)
[2022-04-29] MEDS: ATORVASTATIN CA 80 MG TABLET (FP) PO SCH (09:37)
[2022-04-29] MEDS: methylPREDNISolone NA SUCC 40 MG/1 ML VIAL IVPUSH SCH (09:37)
[2022-04-29] MEDS: ENOXAPARIN NA (PORCINE) 40 MG/0.4 ML DISP.SYRIN SQ SCH (09:37)
[2022-04-29] MEDS: metoPROLOL SUCCINATE 25 MG TAB.SR.24H (FP) PO SCH (09:38)
[2022-04-30] MEDS: ACETAMINOPHEN 325 MG TABLET (FP) PO PRN ×2 (00:40→06:55)
[2022-04-30 07:25] VITALS: BP 158/94; PULSE 101; TEMP 98.4
[2022-04-30] MEDS ORDERED: predniSONE 20 MG TABLET (UD) PO SCH (10:00)
== END 2022-04-30 09:08 | disposition left against medical advice (07) | DRG 140 ==
LOC: JER 15:23 → JERBED 22:02 → UNDOADMOB 22:02 → INTOOBSV 22:02 → JERBED 04-24 12:02 → J7W 04-24 18:11 → OBSVTOIN 04-28 14:56
PROVIDERS: ADMIT Internal Medicine; ATTEND Internal Medicine
DX: J44.1 Chronic obstructive pulmonary disease with (acute) exacerbation (principal); J96.11 Chronic respiratory failure with hypoxia; I10 Essential (primary) hypertension; E78.5 Hyperlipidemia, unspecified; F31.9 Bipolar disorder, unspecified; J20.9 Acute bronchitis, unspecified; E66.01 Morbid (severe) obesity due to excess calories; Z68.43 Body mass index [BMI] 50.0-59.9, adult; Z99.81 Dependence on supplemental oxygen
CPT/HCPCS: 0241U-QW; 36415; 71045-TC-FY; 76604; 80053; 82803; 83735; 83880; 84484; 85025; 87081; 93005; 93010; 94640; 99285-25; G0378

== ENCOUNTER 2022-08-07 11:37 | Emergency (ER) | payer OTHER ==
[2022-08-07 11:52] VITALS: RESP 18; TEMP 98.7; BMI 52.4
[2022-08-07] MEDS ORDERED: ACETAMINOPHEN 1000 MG/100 ML BAG IVPB ONE (13:45)
[2022-08-07] MEDS ORDERED: ACETAMINOPHEN INJECTION 100 ML IVPB ONE (13:49)
[2022-08-07 14:02] LABS: BASO % 0.6 % (0-2.0); EOS % 0.9 % (0-4.5); HEMATOCRIT 36.9 % (32.4-45.2); HEMOGLOBIN 11.5 GM/dL (10.7-15.3); LYMPH % 23.7 % (8-40); MCH 28.5 pg (25.7-33.7); MCHC 31.2 g/dl (32.0-36.0); MEAN CELL VOLUME 91.3 fl (80-96); MEAN PLT VOLUME 9.3 fl (7.5-11.1); MONO % 6.6 % (3.8-10.2); NEUT % 68.2 % (42.8-82.8); PLATELET COUNT 255 10^3/uL (134-434); RBC 4.04 M/mm3 (3.60-5.2); WHITE BLOOD COUNT 8.7 K/mm3 (4.0-10.0)
[2022-08-07 14:28] LABS: POTASSIUM 3.8 mmol/L (3.5-5.1)
[2022-08-07 14:32] LABS: ALBUMIN 3.3 g/dl (3.4-5.0); BLOOD UREA NITROGEN 7.6 mg/dL (7-18); CALCIUM 8.9 mg/dL (8.5-10.1)
[2022-08-07 14:35] LABS: CREATININE 0.6 mg/dL (0.55-1.3)
[2022-08-07 14:37] LABS: BILIRUBIN,TOTAL 0.3 mg/dL (0.2-1); TOT PROT 6.5 g/dl (6.4-8.2)
[2022-08-07 15:43] VITALS: BP 112/76; PULSE 98
[2022-08-07] MEDS ORDERED: methylPREDNISolone NA SUCC 125 MG/2 ML VIAL IVPB ONE (16:07)
[2022-08-07] MEDS ORDERED: methylPREDNISolone NA SUCC 125 MG/2 ML VIAL ONE (16:14)
[2022-08-07] MEDS ORDERED: ALBUTEROL SO4 2.5/IPRATROPIUM 0.5 INH SOL 3 ML VIAL.NEB. NEB SCH (16:15)
[2022-08-07] MEDS ORDERED: ALBUTEROL SO4 2.5/IPRATROPIUM 0.5 INH SOL 3 ML VIAL.NEB. NEB ONE (16:19)
== END 2022-08-07 18:04 | disposition home or self-care (01) ==
LOC: JER 11:37
PROC: 3E033NZ Introduction of Analgesics, Hypnotics, Sedatives into Peripheral Vein, Percutaneous Approach (ICD-10-PCS; principal; 2022-08-07)
PROC: 3E033GC Introduction of Other Therapeutic Substance into Peripheral Vein, Percutaneous Approach (ICD-10-PCS; 2022-08-07)
PROC: 3E0F7GC Introduction of Other Therapeutic Substance into Respiratory Tract, Via Natural or Artificial Opening (ICD-10-PCS; 2022-08-07)
DX: R22.43 Localized swelling, mass and lump, lower limb, bilateral (principal); M79.621 Pain in right upper arm
CPT/HCPCS: 36415; 71045-TC-FY; 80053; 83880; 84484; 85025; 93005; 93010; 99285-25

== ENCOUNTER 2023-01-17 17:49 | Emergency (ER) | payer OTHER ==
[2023-01-17 18:05] VITALS: RESP 18; TEMP 98.4; BMI 46.6
[2023-01-17] MEDS ORDERED: morphine CARPU-JECT 4 MG/1 ML DISP.SYRIN IVPUSH ONE (19:10)
[2023-01-17] MEDS ORDERED: morphine SULFATE 4 MG/ML VIAL ONE (19:34)
[2023-01-17 21:03] LABS: BASO % 0.5 % (0-2.0); EOS % 1.8 % (0-4.5); HEMATOCRIT 41.1 % (32.4-45.2); HEMOGLOBIN 12.9 GM/dL (10.7-15.3); LYMPH % 25.7 % (8-40); MCH 30.7 pg (25.7-33.7); MCHC 31.4 g/dl (32.0-36.0); MEAN CELL VOLUME 97.6 fl (80-96); MEAN PLT VOLUME 9.1 fl (7.5-11.1); PLATELET COUNT 210 10^3/uL (134-434); RBC 4.21 M/mm3 (3.60-5.2); RDW 15.1 % (11.6-15.6); WHITE BLOOD COUNT 9.5 K/mm3 (4.0-10.0)
[2023-01-17 21:16] LABS: POTASSIUM 4.7 mmol/L (3.5-5.1)
[2023-01-17 21:18] LABS: CALCIUM 8.9 mg/dL (8.5-10.1)
[2023-01-17 21:20] LABS: ALBUMIN 3.4 g/dl (3.4-5.0); MAGNESIUM 2.2 mg/dL (1.8-2.4)
[2023-01-17 21:23] LABS: BILIRUBIN,TOTAL 0.4 mg/dL (0.2-1); CREATININE 1.3 mg/dL (0.55-1.3); TOT PROT 7.6 g/dl (6.4-8.2)
[2023-01-17] MEDS ORDERED: KETOROLAC TROMETHAMINE 15 MG/ML VIAL IVPUSH ONE (21:42)
[2023-01-17 22:33] VITALS: BP 135/88; PULSE 88
[2023-01-17] MEDS ORDERED: KETOROLAC TROMETHAMINE 15 MG/ML VIAL ONE (22:49)
== END 2023-01-18 00:54 | disposition home or self-care (01) ==
LOC: JER 17:49
PROC: 3E0333Z Introduction of Anti-inflammatory into Peripheral Vein, Percutaneous Approach (ICD-10-PCS; principal; 2023-01-17)
PROC: 3E033GC Introduction of Other Therapeutic Substance into Peripheral Vein, Percutaneous Approach (ICD-10-PCS; 2023-01-17)
DX: K94.00 Colostomy complication, unspecified (principal); K46.0 Unspecified abdominal hernia with obstruction, without gangrene; M79.601 Pain in right arm; Z20.822 Contact with and (suspected) exposure to COVID-19
CPT/HCPCS: 0241U-QW; 74176-TC; 80053; 83605; 83690; 83735; 85025; 93005; 93010; 99285-25